=== PATIENT | male | born 1960 | race Asian ===

== ENCOUNTER 2018-12-24 10:21 | Emergency (ER) | payer OTHER ==
[~2018-12-24] VITALS: Ht 172.7 cm; Wt 54.5 kg
[2018-12-24] MEDS ORDERED: ASPI81 PO (10:29)
[2018-12-24] MEDS ORDERED: ATOR40TA28 PO (10:29)
[2018-12-24] MEDS ORDERED: METO25 PO (10:29)
[2018-12-24 13:06] VITALS: BP 147/94
== END 2018-12-24 13:10 | disposition home or self-care (01) ==
LOC: EMS 10:23
DX: S63.91XA Sprain of unspecified part of right wrist and hand, initial encounter (principal); I10 Essential (primary) hypertension; Z79.82 Long term (current) use of aspirin; W23.0XXA Caught, crushed, jammed, or pinched between moving objects, initial encounter; Y93.89 Activity, other specified; Y92.89 Other specified places as the place of occurrence of the external cause; Y99.8 Other external cause status